=== PATIENT | female | born 1995 | race Caucasian/White ===

== ENCOUNTER 2016-12-10 20:27 | Emergency (ER) | payer OTHER ==
[~2016-12-10] VITALS: Ht 157.5 cm; Wt 66.5 kg
[~2016-12-10 20:27] MED LIST: NO MEDS
[2016-12-10 20:31] VITALS: Ht 157.5 cm; Wt 66.5 kg
[2016-12-10] MEDS ORDERED: IBUP-1542 PO (23:59)
[2016-12-10] MEDS ORDERED: AMO500 PO (23:59)
--- NOTE | 2016-12-11 00:15 | ERD ---
ER Documentation Chief Complaint Date/Time DATE: 12/11/16 TIME: 00:12 Chief Complaint sore throat, left ear pain HPI 20-year-old female with no significant past medical history reports that she was having a dry cough that started 3 weeks ago however that has resolved. States that now she has a sore throat that radiates to the left side of her ear. Dates that she was originally taking promethazine with codeine for her cough and Mucinex which has resolved her cough. States that now her sore throat is what is bothering her the most and she feels like she cannot swallow. States that she feels like she is just clearing her postnasal drip behind her throat. Reports tactile fevers but no actual temperature taken at home. Denies any foreign body sensation in her throat. Denies any chest pain, shortness of breath, abdominal pain, nausea, vomiting, diarrhea. Denies any sick contacts. ROS All systems reviewed and are negative except as per history of present illness. Medications Home Meds Active Scripts Ibuprofen* (Motrin*) 600 Mg Tab, 600 MG PO Q6, #30 TAB Prov:JESSICA CALI PA-C 12/10/16 Amoxicillin* (Amoxicillin*) 500 Mg Cap, 500 MG PO TID for 10 Days, CAP Prov:JESSICA CALI PA-C 12/10/16 Reported Medications [No Meds] No Conflict Check 03/18/14 Allergies Allergies: Coded Allergies: No Known Allergies (Verified Allergy, Mild, 12/10/16) PMhx/Soc History of Surgery: No Anesthesia Reaction: No Hx Neurological Disorder: No Hx Respiratory Disorders: No Hx Cardiac Disorders: No Hx Psychiatric Problems: No Hx Miscellaneous Medical Probl: No Hx Alcohol Use: No Hx Substance Use: No Hx Tobacco Use: No Smoking Status: Unknown if ever smoked Physical Exam Vitals Vital Signs Date Time Temp Pulse Resp B/P Pulse Ox O2 Delivery O2 Flow Rate FiO2 12/10/16 20:31 97.4 100 20 120/89 100 Physical Exam Const: [id number], well-nourished. In no acute distress. Head: Atraumatic, normocephalic Eyes: Normal Conjunctiva without injection. No purulent discharge. PERRL. EOMI ENT: Normal external ear. Ear canal without erythema. Tympanic membrane pearly rutherford without effusion or bulging. Nasal canal clear with normal turbinates. Moist oropharynx with bilateral tonsillar exudates. Erythematous pharynx. Uvula midline. No drooling. No trismus. Neck: Full range of motion. No meningismus. No cervical lymphadenopathy. Resp: Clear to auscultation bilaterally. No wheezing, rhonchi, rales, or crackles. No accessory muscle use. No retractions. Cardio: Regular rate and rhythm. No murmurs, rubs or gallops. Abd: Soft, non tender, non distended. Normal bowel sounds. No palpable masses. No rebound tenderness. No guarding. Skin: No petechiae or rashes Back: No midline tenderness. No CVA tenderness. Ext: No cyanosis, or edema. Neur: Awake and alert. Psych: Normal Mood and Affect Procedures/MDM 20-year-old female with no significant past medical history presents to the ED complaining of sore throat. Patient is afebrile and nontoxic-appearing. Patient has normal vital signs. Patient's physical exam is consistent with presumed strep pharyngitis. Based on [employer]'s Criteria, patient has reported fever at home, erythematous tonsils with exudates, no cough. Patient is appropriate for outpatient antibiotics. Patient's physical exam include lungs which were clear to auscultation and a normal pulse oximetry. Bilateral ears pearly huerta. No tenderness to palpation of tragus or mastoid. Low suspicion for mastoiditis, otitis externa, otitis media. Patient is speaking in full sentences. There is a low suspicion for pneumonia, epiglottitis, croup, sinusitis, peritonsillar abscess, hands foot mouth disease, scarlet fever, kawasaki disease, retropharyngeal abscess, meningitis, sepsis, acute abdomen or other emergent conditions. Discharge medications: Amoxicillin, ibuprofen Follow up with primary care physician in 1-2 days. Instructed patient to return to the ED sooner for any worsening symptoms. Patient's questions were answered. Patient understood and agreed with discharge plan. Patient discharged stable. Departure Diagnosis: Primary Impression: Pharyngitis Pharyngitis/tonsillitis etiology: unspecified etiology Qualified Code: J02.9 - Pharyngitis, unspecified etiology Condition: Stable Patient Instructions: Pharyngitis, Strep (Presumed) Referrals: [facility] YOU HAVE RECEIVED A MEDICAL SCREENING EXAM AND THE RESULTS INDICATE THAT YOU DO NOT HAVE A CONDITION THAT REQUIRES URGENT TREATMENT IN THE EMERGENCY DEPARTMENT. FURTHER EVALUATION AND TREATMENT OF YOUR CONDITION CAN WAIT UNTIL YOU ARE SEEN IN YOUR DOCTORS OFFICE WITHIN THE NEXT 1-2 DAYS. IT IS YOUR RESPONSIBILITY TO MAKE AN APPOINTMENT FOR FOLOW-UP CARE. IF YOU HAVE A PRIMARY DOCTOR --you should call your primary doctor and schedule an appointment IF YOU DO NOT HAVE A PRIMARY DOCTOR YOU CAN CALL OUR PHYSICIAN REFERRAL HOTLINE AT IF YOU CAN NOT AFFORD TO SEE A PHYSICIAN YOU CAN CHOSE FROM THE FOLLOWING [facility] [address] [facility] [address] [address] [facility] [address] [facility] [facility] [address] [facility] [address] [facility] [facility] [address] [facility]. [facility] [address] [facility]. [facility] YOU HAVE RECEIVED A MEDICAL SCREENING EXAM AND THE RESULTS INDICATE THAT YOU DO NOT HAVE A CONDITION THAT REQUIRES URGENT TREATMENT IN THE EMERGENCY DEPARTMENT. FURTHER EVALUATION AND TREATMENT OF YOUR CONDITION CAN WAIT UNTIL YOU ARE SEEN IN YOUR DOCTORS OFFICE WITHIN THE NEXT 1-2 DAYS. IT IS YOUR RESPONSIBILITY TO MAKE AN APPOINTMENT FOR FOLOW-UP CARE. IF YOU HAVE A PRIMARY DOCTOR --you should call your primary doctor and schedule and appointment IF YOU DO NOT HAVE A PRIMARY DOCTOR YOU CAN CALL OUR PHYSICIAN REFERRAL HOTLINE AT . IF YOU CAN NOT AFFORD TO SEE A PHYSICIAN YOU CAN CHOSE FROM THE FOLLOWING [facility]: [facility] [address] [place] [address] [facility] [address] [place] [address] [facility] + [facility] [address] [place] [address] [facility] URGENT CARE/SPECIALTIES Additional Instructions: FOLLOW UP WITH YOUR PRIMARY CARE PHYSICIAN in 2-3 days. Return to this facility if you are not improving as expected. JESSICA CALI PA-C Dec 11, 2016 00:15
[2016-12-11 00:30] VITALS: PULSE 98; RESP 20; TEMP 98.9
== END 2016-12-11 00:28 | disposition home or self-care (01) ==
LOC: FTE 20:27
DX: J02.9 Acute pharyngitis, unspecified (principal)
CPT/HCPCS: 99283

== ENCOUNTER 2017-07-02 08:38 | Emergency (ER) | payer OTHER ==
[~2017-07-02] VITALS: Wt 70.0 kg
[~2017-07-02 08:38] MED LIST changes: +AMO500 PO; +IBUP-1542 PO
[2017-07-02] MEDS ORDERED: KETOROLAC 30 MG INJ IM STA (09:21)
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
[2017-07-02 10:05] LABS: URINE BLOOD (Dip) POC 3+ (NEGATIVE)
--- NOTE | 2017-07-02 11:18 | RADRPT ---
PROCEDURE: XR Pelvis and bilateral hips. CLINICAL INDICATION: Bilateral hip pain TECHNIQUE: Three views of the pelvis and bilateral hips are available for review. COMPARISON: No prior studies are available for comparison. FINDINGS: No acute fracture or dislocation is seen. No radiopaque foreign body is identified. The osseous min eralization is normal. The sacroiliac joints, as visualized, are grossly unremarkable. The bilateral hip joints are unremarkable as well. No joint dislocation is seen. No joint space abnormality is identified. IMPRESSION: 1. No acute fracture or dislocation of the bilateral hips. RPTAT: QQ .Sari Aguero MD, Date Time Electronically viewed and signed by .Sari Aguero MD, on 07/02/2017 11:18 .N/
--- NOTE | 2017-07-02 11:19 | RADRPT ---
PROCEDURE: XR Lumbar Spine. CLINICAL INDICATION: Low back pain. TECHNIQUE: Three views of the lumbar spine are available for review COMPARISON: None available FINDINGS: There is straightening of the normal lumbar lordosis. Alignment is intact. No acute fracture or dis location is seen. The vertebral body heights are all normal. There are mild degenerative changes of lumbar spine, most pronounced at L5-S1. IMPRESSION: 1. No acute fracture or dislocation. 2. Mild discogenic disease mainly at L5-S1. 3. Straightening of the normal lumbar lordosis. RPTAT: QQ .Sari Aguero MD, Date Time Electronically viewed and signed by .Sari Aguero MD, on 07/02/2017 11:19 .N/
--- NOTE | 2017-07-02 11:24 | RADRPT ---
PROCEDURE: XR Sacrum and Coccyx. CLINICAL INDICATION: Pain. TECHNIQUE: AP views of the sacrum and coccyx were performed. COMPARISON: No prior studies are available for comparison. FINDINGS: No acute displaced fracture or subluxation is seen. The sacroiliac joints appear normal. The soft ti ssues are unremarkable. The coccygeal elements are intact and in normal alignment. No fracture or d islocation is seen. IMPRESSION: 1. No acute displaced fracture or dislocation of the sacrum and coccyx. RPTAT: QQ .Sari Aguero MD, MD Date Time Electronically viewed and signed by .Sari Aguero MD, on 07/02/2017 11:24 .N/
[2017-07-02] MEDS ORDERED: IBUP-1542 PO (11:37)
[2017-07-02] MEDS ORDERED: HYDR-906 PO (11:37)
[2017-07-02 11:51] VITALS: BP 148/78; PULSE 75; RESP 19; TEMP 98.4
== END 2017-07-02 11:53 | disposition home or self-care (01) ==
LOC: FTE 08:38
DX: S40.812A Abrasion of left upper arm, initial encounter (principal); S40.811A Abrasion of right upper arm, initial encounter; S80.812A Abrasion, left lower leg, initial encounter; S80.811A Abrasion, right lower leg, initial encounter; S39.92XA Unspecified injury of lower back, initial encounter; S79.911A Unspecified injury of right hip, initial encounter; S79.912A Unspecified injury of left hip, initial encounter; Y04.0XXA Assault by unarmed brawl or fight, initial encounter
CPT/HCPCS: 72100; 72220; 73520; 81003; 96372; J1885; Z7502

== ENCOUNTER 2018-04-14 09:37 | Emergency (ER) | END 2018-04-14 10:38 | disposition home or self-care (01) ==

== ENCOUNTER 2019-01-09 12:57 | Emergency (ER) | payer OTHER ==
[~2019-01-09] VITALS: Ht 165.1 cm; Wt 68.0 kg
[~2019-01-09 12:57] MED LIST changes: -AMO500 PO; +AMOX500C2 PO; +DOXY100T20 PO; +HYDR-4011 PO; +HYDR-842 PO; +PRED20TA PO
[2019-01-09 13:03] VITALS: BP 132/80; PULSE 72; RESP 16; Ht 165.1 cm; Wt 68.0 kg
[2019-01-09] MEDS ORDERED: ACET500C5 PO (14:19)
[2019-01-09] MEDS ORDERED: IBUP800T48 PO (14:19)
--- NOTE | 2019-01-09 15:34 | ERD ---
ER Documentation Chief Complaint Chief Complaint LETHARGY WITH GLORIA/BODY ACHES/CHILLS X 2 DAYS HPI 23-year-old female presenting with body aches and chills times 2 days. Patient states that she has been feeling very tired denies any fevers. She denies any chest pain or shortness of breath. Denies abdominal pain. Denies vomiting. Medical history denies. NKDA. Surgical history is . Social history denies. ROS All systems reviewed and are negative except as per history of present illness. Medications Home Meds Active Scripts Acetaminophen* (Tylophen*) 500 Mg Capsule, 1 CAP PO Q6H PRN for PAIN AND OR ELEVATED TEMP, #20 CAP Prov:TELLO LOWE PA-C 01/09/19 Ibuprofen* (Motrin*) 800 Mg Tab, 800 MG PO Q6, #30 TAB Prov:TELLO LOWE PA-C 01/09/19 Hydroxyzine Hcl* (Atarax*) 25 Mg Tab, 25 MG PO Q6H PRN for ITCHING, #25 TAB Prov:ANNAMARIE WALKER MD 04/14/18 Prednisone* (Prednisone*) 20 Mg Tab, 40 MG PO DAILY for 4 Days, TAB Prov:ANNAMARIE WALKER MD 04/14/18 Doxycycline Hyclate* (Doxycycline Hyclate*) 100 Mg Tablet.dr, 100 MG PO BID for 7 Days, TAB Prov:ANNAMARIE WALKER MD 04/14/18 Hydrocodone/Acetaminophen ([place] 5-325 Tablet) 1 Each Tablet, 1 TAB PO Q6H PRN for PAIN, #7 TAB Prov:ROMEO HAAS PA-C 07/02/17 Ibuprofen* (Motrin*) 600 Mg Tab, 600 MG PO Q6, #30 TAB Prov:ROMEO HAAS PA-C 07/02/17 Ibuprofen* (Motrin*) 600 Mg Tab, 600 MG PO Q6, #30 TAB Prov:JESSICA CALI PA-C 12/10/16 Amoxicillin* (Amoxicillin*) 500 Mg Cap, 500 MG PO TID for 10 Days, CAP Prov:JESSICA CALI PA-C 12/10/16 Reported Medications [No Meds] No Conflict Check 03/18/14 Allergies Allergies: Coded Allergies: No Known Allergies (Verified Allergy, Mild, 04/14/18) PMhx/Soc History of Surgery: No Anesthesia Reaction: No Hx Neurological Disorder: No Hx Respiratory Disorders: No Hx Cardiac Disorders: No Hx Psychiatric Problems: No Hx Miscellaneous Medical Probl: No Hx Alcohol Use: Yes (occasionally) Hx Substance Use: No Hx Tobacco Use: No Smoking Status: Never smoker FmHx Family History: No diabetes, No coronary disease, No other Physical Exam Vitals Vital Signs Date Temp Pulse Resp B/P (MAP) Pulse Ox O2 O2 Flow FiO2 Time Delivery Rate 01/09/19 98.1 72 16 132/80 97 13:03 (97) Physical Exam GENERAL: The patient is well-appearing, well-nourished, in no acute distress HEENT: Atraumatic. Conjunctivae are pink. Pupils equal, round, and reactive to light. There is no scleral icterus. Tympanic membranes clear bilaterally. Oropharynx clear. CHEST: Clear to auscultation bilaterally. There are no rales, wheezes or rhonchi. HEART: Regular rate and rhythm. No murmurs, clicks, rubs or gallops. No S3 or S4. ABDOMEN:Soft, nontender and nondistended. Good bowel sounds. No rebound or guarding. No gross peritonitis. No gross organomegaly or masses. Results 24 hrs Laboratory Tests Test 01/09/19 14:09 01/09/19 14:11 Bedside Urine pH (LAB) 5.5 Bedside Urine Protein (LAB) 1+ Bedside Urine Glucose (UA) Negative Bedside Urine Ketones (LAB) Negative Bedside Urine Blood Trace-intact Bedside Urine Nitrite (LAB) Negative Bedside Urine Leukocyte Esterase (L Negative POC Beta HCG, Qualitative NEGATIVE Procedures/MDM MDM: 23-year-old female presenting with body aches. Patient's exam is non- concerning and vitals are stable. Patient is discharged with supportive medications and likely is experiencing viral syndrome. I have low suspicion for acute abdominal emergency. I have low suspicion for meningitis or sepsis. Patient is discharged stricter precautions and told to follow-up with primary care within 1-2 days for close evaluation. She is told symptoms change or worsen to return immediately to the ER. All questions answered at discharge Departure Diagnosis: Primary Impression: Upper respiratory infection Condition: Stable Patient Instructions: Preventing Common Respiratory Infections Referrals: [facility] YOU HAVE RECEIVED A MEDICAL SCREENING EXAM AND THE RESULTS INDICATE THAT YOU DO NOT HAVE A CONDITION THAT REQUIRES URGENT TREATMENT IN THE EMERGENCY DEPARTMENT. FURTHER EVALUATION AND TREATMENT OF YOUR CONDITION CAN WAIT UNTIL YOU ARE SEEN IN YOUR DOCTORS OFFICE WITHIN THE NEXT 1-2 DAYS. IT IS YOUR RESPONSIBILITY TO MAKE AN APPOINTMENT FOR FOLOW-UP CARE. IF YOU HAVE A PRIMARY DOCTOR --you should call your primary doctor and schedule an appointment IF YOU DO NOT HAVE A PRIMARY DOCTOR YOU CAN CALL OUR PHYSICIAN REFERRAL HOTLINE AT IF YOU CAN NOT AFFORD TO SEE A PHYSICIAN YOU CAN CHOSE FROM THE FOLLOWING [facility] [address] [facility]. [facility] [address] [facility] [facility] [address] [facility] [facility] [address] [facility]. [facility] [address] [facility]. [facility] [address] Additional Instructions: FOLLOW UP WITH YOUR PRIMARY CARE PHYSICIAN TOMORROW.Return to this facility if you are not improving as expected. TELLO LOWE PA-C Jan 09, 2019 15:34
== END 2019-01-09 15:00 | disposition home or self-care (01) ==
LOC: FTE 12:57
DX: J06.9 Acute upper respiratory infection, unspecified (principal)
CPT/HCPCS: 81003; 81025; Z7502; 99282

== ENCOUNTER 2019-03-06 10:09 | Emergency (ER) | payer OTHER ==
[~2019-03-06] VITALS: Ht 162.6 cm; Wt 70.9 kg
[~2019-03-06 10:09] MED LIST changes: +ACET500C5 PO; +IBUP800T48 PO
[2019-03-06 10:14] VITALS: BP 117/72; PULSE 77; RESP 18; Ht 162.6 cm; Wt 70.9 kg
[2019-03-06] MEDS ORDERED: ACET500C5 PO (10:31)
[2019-03-06] MEDS ORDERED: AMOX1TAB10 PO (10:31)
[2019-03-06] MEDS ORDERED: IBUP800T48 PO (10:31)
--- NOTE | 2019-03-06 14:44 | ERD ---
ER Documentation Chief Complaint Chief Complaint sore throat since yesterday HPI 23-year-old female presenting with sore throat that started yesterday. Patient has no fever. Has a runny nose and some neck pain. Has not taken medication for symptoms. Denies medical problems. NKDA. Surgical history . So cial history denies ROS All systems reviewed and are negative except as per history of present illness. Medications Home Meds Active Scripts Acetaminophen* (Tylophen*) 500 Mg Capsule, 1 CAP PO Q6H PRN for PAIN AND OR ELEVATED TEMP, #20 CAP Prov:TELLO LOWE PA-C 03/06/19 Ibuprofen* (Motrin*) 800 Mg Tab, 800 MG PO Q6, #30 TAB Prov:TELLO LOWE PA-C 03/06/19 Amoxicillin/Potassium Clav (Amox-Clav 875-125 mg Tablet) 875-125 mg Tab, 1 TAB PO BID for 7 Days, #14 TAB Prov:TELLO LOWE PA-C 03/06/19 Acetaminophen* (Tylophen*) 500 Mg Capsule, 1 CAP PO Q6H PRN for PAIN AND OR ELEVATED TEMP, #20 CAP Prov:TELLO LOWE PA-C 01/09/19 Ibuprofen* (Motrin*) 800 Mg Tab, 800 MG PO Q6, #30 TAB Prov:TELLO LOWE PA-C 01/09/19 Hydroxyzine Hcl* (Atarax*) 25 Mg Tab, 25 MG PO Q6H PRN for ITCHING, #25 TAB Prov:ANNAMARIE WALKER MD 04/14/18 Prednisone* (Prednisone*) 20 Mg Tab, 40 MG PO DAILY for 4 Days, TAB Prov:ANNAMARIE WALKER MD 04/14/18 Doxycycline Hyclate* (Doxycycline Hyclate*) 100 Mg Tablet.dr, 100 MG PO BID for 7 Days, TAB Prov:ANNAMARIE WALKER MD 04/14/18 Hydrocodone/Acetaminophen ([place] 5-325 Tablet) 1 Each Tablet, 1 TAB PO Q6H PRN for PAIN, #7 TAB Prov:ROMEO HAAS PA-C 07/02/17 Ibuprofen* (Motrin*) 600 Mg Tab, 600 MG PO Q6, #30 TAB Prov:ROMEO HAAS MIRIAM 07/02/17 Ibuprofen* (Motrin*) 600 Mg Tab, 600 MG PO Q6, #30 TAB Prov:JESSICA CALI MIRIAM 12/10/16 Amoxicillin* (Amoxicillin*) 500 Mg Cap, 500 MG PO TID for 10 Days, CAP Prov:JESSICA CALIDanielle PINEDA 12/10/16 Reported Medications [No Meds] No Conflict Check 03/18/14 Allergies Allergies: Coded Allergies: No Known Allergies (Verified Allergy, Mild, 04/14/18) PMhx/Soc Medical and Surgical Hx: pt denies Medical Hx, pt denies Surgical Hx History of Surgery: No Anesthesia Reaction: No Hx Neurological Disorder: No Hx Respiratory Disorders: No Hx Cardiac Disorders: No Hx Psychiatric Problems: No Hx Miscellaneous Medical Probl: No Hx Alcohol Use: Yes (occasionally) Hx Substance Use: No Hx Tobacco Use: No Smoking Status: Never smoker FmHx Family History: No diabetes, No coronary disease, No other Physical Exam Vitals Vital Signs Date Temp Pulse Resp B/P (MAP) Pulse Ox O2 O2 Flow FiO2 Time Delivery Rate 03/06/19 98.9 77 18 117/72 98 10:14 (87) Physical Exam GENERAL: The patient is well-appearing, well-nourished, in no acute distress HEENT: Atraumatic. Conjunctivae are pink. Pupils equal, round, and reactive to light. There is no scleral icterus. Tympanic membranes clear bilaterally. Oropharynx erythematous with exudate noted. NECK: C-spine is soft and supple. There is no meningismus. There is no cervical lymphadenopathy. CHEST: Clear to auscultation bilaterally. There are no rales, wheezes or rhonchi. HEART: Regular rate and rhythm. No murmurs, clicks, rubs or gallops. Procedures/MDM MDM: 23-year-old female presenting with sore throat. Patient's exam is concerning for strep treat with antibiotics. I have low suspicion for peritonsillar retropharyngeal abscess. Patient is discharged with strict ER precautions and supportive medications. Patient is told if symptoms change or worsen to return immediately to the ER. All questions answered at discharge Departure Diagnosis: Primary Impression: Sore throat Condition: Stable Patient Instructions: When You Have a Sore Throat Referrals: [facility] YOU HAVE RECEIVED A MEDICAL SCREENING EXAM AND THE RESULTS INDICATE THAT YOU DO NOT HAVE A CONDITION THAT REQUIRES URGENT TREATMENT IN THE EMERGENCY DEPARTMENT. FURTHER EVALUATION AND TREATMENT OF YOUR CONDITION CAN WAIT UNTIL YOU ARE SEEN IN YOUR DOCTORS OFFICE WITHIN THE NEXT 1-2 DAYS. IT IS YOUR RESPONSIBILITY TO MAKE AN APPOINTMENT FOR FOLOW-UP CARE. IF YOU HAVE A PRIMARY DOCTOR --you should call your primary doctor and schedule an appointment IF YOU DO NOT HAVE A PRIMARY DOCTOR YOU CAN CALL OUR PHYSICIAN REFERRAL HOTLINE AT IF YOU CAN NOT AFFORD TO SEE A PHYSICIAN YOU CAN CHOSE FROM THE FOLLOWING [facility] [address] [facility]. [facility] [address] [facility] [facility] [address] [facility] [facility] [address] [facility] [facility] [address] [facility]. [facility]. [address] Additional Instructions: FOLLOW UP WITH YOUR PRIMARY CARE PHYSICIAN TOMORROW.Return to this facility if you are not improving as expected. TELLO LOWE PA-C Mar 06, 2019 14:44
== END 2019-03-06 10:55 | disposition home or self-care (01) ==
LOC: FTE 10:09
DX: J02.9 Acute pharyngitis, unspecified (principal)
CPT/HCPCS: 99283

== ENCOUNTER 2019-09-24 13:38 | Emergency (ER) | payer OTHER ==
[~2019-09-24] VITALS: Wt 78.0 kg
[~2019-09-24 13:38] MED LIST changes: +AMOX1TAB10 PO; +DOXY-214 PO; -DOXY100T20 PO; +MED4DP PO; +PROM5SYR2 PO
[2019-09-24 13:39] VITALS: BP 134/67; PULSE 67; RESP 18
== END 2019-09-24 15:32 | disposition home or self-care (01) ==
LOC: FTE 13:38
DX: R05 Cough (principal)
CPT/HCPCS: 99283